=== PATIENT | male | born 1995 | race Caucasian/White ===

== ENCOUNTER 2019-09-04 09:51 | Emergency (ER) | payer OTHER ==
--- NOTE | 2019-09-04 10:30 | EDM.PDOC ---
ED HPI GENERAL MEDICAL PROBLEM - General Chief Complaint: Lower Extremity Injury/Pain Stated Complaint: INJURED LT KNEE Time Seen by Provider: 09/04/19 10:02 Source of Information: Reports: Patient History Limitations: Reports: No Limitations - History of Present Illness INITIAL COMMENTS - FREE TEXT/NARRATIVE: This 24 year old male is admitted to the ED with a chief complaint of injuring his left knee as he was turning, he twisted his left knee. He complains of pain along the medial aspects of the left knee just below the inferior borders of the patella. He complains of discomfort with weight bearing. He denies any other problems at this time. Onset: Today Location: Reports: Upper Extremity, Left (knee) Improves with: Reports: Movement left knee Pain Score (Numeric/FACES): 8 - Related Data Allergies Allergy/AdvReac Type Severity Reaction Status Date / Time No Known Allergies Allergy Verified 09/04/19 09:57 Home Meds: Home Meds . [No Known Home Meds] 09/04/19 [History] Past Medical History - Past Surgical History Other Musculoskeletal Surgeries/Procedures:: ACL reconstruction of left knee Social & Family History - Family History Family Medical History: Noncontributory - Tobacco Use Smoking Status *Q: Light Tobacco Smoker Years of Tobacco use: 6 Packs/Tins Daily: 0.3 - Recreational Drug Use Recreational Drug Use: No Review of Systems - Review of Systems Review Of Systems: See Below Constitutional: Reports: No Symptoms Eyes: Reports: No Symptoms Ears: Reports: No Symptoms Nose: Reports: No Symptoms Mouth/Throat: Reports: No Symptoms Respiratory: Reports: No Symptoms Cardiovascular: Reports: No Symptoms GI/Abdominal: Reports: No Symptoms Genitourinary: Reports: No Symptoms Musculoskeletal: Reports: Other (left knee pain) Neurological: Reports: No Symptoms ED EXAM, GENERAL - Physical Exam Exam: See Below Exam Limited By: No Limitations General Appearance: Alert, WD/WN, No Apparent Distress Head: Atraumatic, Normocephalic Neck: Normal Inspection, Supple, Non-Tender, Full Range of Motion Respiratory/Chest: No Respiratory Distress, Lungs Clear Cardiovascular: Normal Peripheral Pulses, Regular Rate, Rhythm Peripheral Pulses: 3+: Popliteal (L), Popliteal (R), Dorsalis Pedis (L), Dorsalis Pedis (R) GI/Abdominal: Normal Bowel Sounds, Soft, Non-Tender (Male) Exam: Deferred Rectal (Males) Exam: Deferred Back Exam: Normal Inspection, Full Range of Motion Extremities: Normal Inspection, Normal Capillary Refill, Other (tenderness with very little swelling noted along the medial aspects of the left knee approx 3.5 cm inferior to the patella. No sign of joint effusion. Decrease flexion and extension of the left knee. The knee joint is stable with signs of ligament or meniscus injury.) Neurological: Alert, Oriented (times 4), CN II-XII Intact, Normal Reflexes Psychiatric: Normal Affect, Normal Mood Skin Exam: Warm, Dry, Intact, Normal Color, No Rash Course - Vital Signs Text/Narrative:: The patient left knee x-ray is negative for acute pathology. He will be discharged after a eladia wrap has been applied. He agrees with the discharge plan. Last Recorded V/S: Last Vital Signs Temp 97.3 F 09/04/19 09:57 Pulse 90 09/04/19 09:57 Resp 16 09/04/19 09:57 BP 145/67 H 09/04/19 09:57 Pulse Ox 98 09/04/19 09:57 - Orders/Labs/Meds Orders: Active Orders 24 hr Category Date Time Status DME for Discharge [COMM] Stat Oth 09/04/19 10:54 Ordered DME for Discharge [COMM] Stat Oth 09/04/19 10:55 Ordered Departure - Departure Time of Disposition: 10:56 Disposition: Home, Self-Care 01 Condition: Good Clinical Impression: Sprain of left knee Qualifiers: Encounter type: initial encounter Involved ligament of knee: medial collateral ligament Qualified Code(s): S83.412A - Sprain of medial collateral ligament of left knee, initial encounter - Discharge Information *PRESCRIPTION DRUG MONITORING PROGRAM REVIEWED*: Yes *COPY OF PRESCRIPTION DRUG MONITORING REPORT IN PATIENT MARIOLA: Yes Instructions: Crutch Use, Adult, [id number], How to Use Cold Therapy, Easy-to -Read, Knee Sprain, Adult, [id number] Referrals: PCP,Unknown [Primary Care Provider] - Forms: ED Department Discharge Additional Instructions: Follow up with Ortho in the next two to four days. Ice and elevation for the next two days (30 minutes on and one hour off while awake). Use crutches for the next three to four days and after that for comfort. Return to the ED if your condition gets worse or should you have any questions or concerns. The following information is given to patients seen in the emergency department who are being discharged to home. This information is to outline your options for follow-up care. We provide all patients seen in our emergency department with a follow-up referral. The need for follow-up, as well as the timing and circumstances, are variable depending upon the specifics of your emergency department visit. If you don't have a primary care physician on staff, we will provide you with a referral. We always advise you to contact your personal physician following an emergency department visit to inform them of the circumstance of the visit and for follow-up with them and/or the need for any referrals to a consulting specialist. The emergency department will also refer you to a specialist when appropriate. This referral assures that you have the opportunity for follow-up care with a specialist. All of these measure are taken in an effort to provide you with optimal care, which includes your follow-up. Under all circumstances we always encourage you to contact your private physician who remains a resource for coordinating your care. When calling for follow-up care, please make the office aware that this follow-up is from your recent emergency room visit. If for any reason you are refused follow-up, please contact the [facility] Department at and asked to speak to the emergency department charge nurse. Sepsis Event Note - Evaluation Sepsis Screening Result: No Definite Risk - Focused Exam Vital Signs: Vital Signs Temp Pulse Resp BP Pulse Ox 09/04/19 09:57 97.3 F 90 16 145/67 H 98 Date Exam was Performed: 09/04/19 Time Exam was Performed: 10:56 - My Orders Last 24 Hours: My Active Orders 09/04/19 10:54 DME for Discharge [COMM] Stat 09/04/19 10:55 DME for Discharge [COMM] Stat - Assessment/Plan Last 24 Hours: My Active Orders 09/04/19 10:54 DME for Discharge [COMM] Stat 09/04/19 10:55 DME for Discharge [COMM] Stat
--- NOTE | 2019-09-04 10:47 | CR ---
Left knee: AP, lateral and sunrise patellar views of the left knee were obtained. Comparison: No prior knee exam is available. Previous surgery is noted for the anterior cruciate ligament. Medial joint is not optimally seen in profile but felt to be maintained. Lateral joint space is preserved. No joint effusion is seen. No acute fracture or other bony abnormality is identified. Left patellofemoral joint appears normal. Impression: 1. Prior ACL surgery. 2. Medial joint space not seen well in profile. 3. Left knee exam is otherwise unremarkable. Diagnostic code #2 This report was dictated in MDT
== END 2019-09-04 11:35 | disposition home or self-care (01) ==
LOC: MW.ED 09:51
DX: S83.412A Sprain of medial collateral ligament of left knee, initial encounter (principal); F17.200 Nicotine dependence, unspecified, uncomplicated; X50.1XXA Overexertion from prolonged static or awkward postures, initial encounter
CPT/HCPCS: 73562-26-LT; 73562-LT; 99283-25